=== PATIENT | female | born 1980 | race Caucasian/White ===

== ENCOUNTER 2024-01-13 08:00 | Outpatient (CLI) | payer OTHER ==
[2024-01-13 14:24] LABS: INFLUENZA A- RESP PCR PANEL NOT DETECTED; INFLUENZA B - RESP PCR PANEL NOT DETECTED; RSV- RESP PCR PANEL NOT DETECTED
[2024-01-13 14:27] LABS: SARS-CoV-2 -RESP PCR PANEL DETECTED
== END 2024-01-13 23:59 | disposition home or self-care (01) ==
LOC: LAB 08:00
PROVIDERS: ATTEND Physician Assistant
DX: U07.1 COVID-19 (principal)
CPT/HCPCS: 87070; 87637